=== PATIENT | male | born 1925 | race Caucasian/White ===

== ENCOUNTER 2017-02-18 17:18 | Observation (INO) | payer MEDICARE, OTHER ==
[~2017-02-18] VITALS: Ht 167.6 cm; Wt 71.2 kg
[2017-02-18] VITALS (8 sets, daily range): BP systolic 113–142; BP diastolic 63–92; PULSE 57–137; RESP 16–18; O2SAT 94–98
[~2017-02-18 17:18] MED LIST: AMIN1TAB PO; ASCO500T6 PO; ASP81TEC; CLOP75TA14 PO; DUTA0.5C PO; ERGO400C PO; FISH; ISOS30TA PO; METO25TA6 PO; METO50TA3 PO; TAM4; TRIPLE FLEX; VISION ESSENTIALS; ZES5 PO; [UNRECOGNIZED DRUG - REMARK]
--- NOTE | 2017-02-18 17:31 | ED.REPORT ---
HPI-General Illness Date of Service Feb 18, 2017 ED Provider: Grzegorz Rashid MD The patient is a 89 year old male w/ a hx of COPD, CAD, hyperlipidemia, and paroxysmal A-fib w/ RVR who presents to the ED due to an episode of rapid heart heart at 1600 today. Pt took his metoprolol and warfarin this morning. He denies lightheadedness and chest pain. Pt reports SOB, but this is baseline for him. Pt was seen at [facility] for similar symptoms 7 months ago. Nursing Notes Stated Complaint: RAPID HEART RATE Chief Complaint: Dysrhythmia/Cardiac Nursing Notes Reviewed: Yes Allergies: Coded Allergies: Penicillins (Verified Allergy, Severe, 02/18/17) meperidine (Verified Allergy, Severe, 02/18/17) Scheduled Amino Acids/Mv,Fe,Other Min-Expunged Drug, Do (Ocuvite Extra-Expunged Drug, Do Not Renew!) 1 Tab Tablet 2 TAB PO BID Ascorbic Acid-Expunged Drug, Do Not Renew! (Vitamin C-Expunged Drug, Do Not Renew!) 500 Mg Tab.chew 500 MG PO AM Dutasteride-Expunged Drug, Do Not Renew! (Dutasteride-Expunged Drug, Do Not Renew!) 0.5 Mg Capsule 0.5 MG PO HS Ergocalciferol-Expunged Drug, Do Not Renew! (Vitamin D-Expunged Drug, Do Not Renew!) 400 Unit Capsule 1,000 MG PO HS Metoprolol Tartrate (Metoprolol Tartrate) 50 Mg Tablet 50 MG PO BID Warfarin Sodium (Warfarin Sodium) 5 Mg Tablet 5 MG PO HS Miscellaneous Medications Aspirin-Expunged Drug, Do Not Renew! (Aspirin EC-Expunged Drug, Do Not Renew!) 81 Mg Tablet General Time Seen by MD: 17:30 Chief Complaint Other (rapid heart rate) Hx Obtained From: Patient Arrived By: Walk-in Sudden in Onset?: Yes Onset Occurred: 1 - 4 hours ago Symptom Duration: Since onset Severity: Current: No pain currently Recent Healthcare: No recent doctor visit, No recent hospitalization Similar Sx Previous: Yes Past Medical History Past Medical History COPD CAD Hyperlipidemia Paroxysmal A-fib w/ RvR Reports: COPD, Coronary artery disease, Hyperlipidemia Past Surgical History Jaw R arm Appendectomy Reports: Appendectomy Smoking History Unknown if Ever Smoker Social History Other Social History: Good social support, Ambulatory Status Independent Review of Systems Full Review of Systems Respiratory: Denies: Shortness of breath Cardiovascular: Denies: Chest pain Neurologic: Reports: Lightheaded Complete sys rev & neg: except as marked. Physical Exam Vital Signs Vital Signs Date Time Temp Pulse Resp B/P Pulse Ox O2 Delivery O2 Flow Rate FiO2 02/18/17 19:59 36.5 57 16 115/63 97 Room Air 02/18/17 18:53 37.1 107 18 123/84 95 Room Air 02/18/17 18:41 115 17 125/92 95 Room Air 02/18/17 18:31 111 17 113/79 95 Room Air 02/18/17 18:10 113 17 121/82 94 Room Air 02/18/17 17:20 36.7 137 18 142/78 98 Room Air Initial VS: Reviewed General/Constitutional: Awake, Alert, Cooperative, Not toxic appearing Head / Eyes: Atraumatic, Normocephalic Neck: Atraumatic, No carotid bruit Respiratory / Chest: Atraumatic, Breath sounds NL, Breath sounds = bilat, No respiratory distress Cardiovascular: No gallop, No murmurs, No rubs Heart Rate / Rhythm: Positive: Irreg irregular rhythm Upper Extremities Upper Extremity / MS: Atraumatic, Inspection NL, Full range of motion, No deformity Lower Extremity / Pelvis / MS: Atraumatic, Inspection NL, Full range of motion , No deformity Skin: Atraumatic, Color NL, No rash Neurologic: Oriented X3, Speech NL, No motor deficits Interpretation & Diagnostics Lab Results Interpretation Result Diagram: 02/18/17 1750 02/18/17 1750 Test 02/18/17 17:50 White Blood Count 9.7th/mm3 (3.8-10.1) Red Blood Count 4.86mil/mm3 (4.40-5.80) Hemoglobin 14.5g/dL (13.8-17.2) Hematocrit 43.2% (41.0-50.0) Mean Corpuscular Volume 88.9fL (81-100) Mean Corpuscular Hemoglobin 29.8pg (27.0-35.0) Mean Corpuscular Hemoglobin Concent 33.6% (32.0-37.0) Red Cell Distribution Width 14.1% (12.3-15.4) Platelet Count 185bil/L (150-400) Neutrophils (%) (Auto) 68.7% (40-74) Lymphocytes (%) (Auto) 13.4% (14-46) Monocytes (%) (Auto) 9.5% (4-12) Eosinophils (%) (Auto) 8.0% (0-5) Basophils (%) (Auto) 0.3% (0-3) Prothrombin Time 20.9sec (8.1-12.5) Prothromb Time International Ratio 1.93ratio Sodium Level 137mEq/L (134-144) Potassium Level 4.0mEq/L (3.5-5.2) Chloride Level 101mEq/L (97-108) Carbon Dioxide Level 23mmol/L (18-29) Blood Urea Nitrogen 16mg/dL (8-27) Creatinine 0.67mg/dL (0.76-1.27) Estimat Glomerular Filtration Rate 119mL/min (>59) Glucose Level 112mg/dL (60-99) Calcium Level 9.3mg/dL (8.5-10.1) Magnesium Level 2.0mg/dL (1.6-2.6) Total Bilirubin 0.4mg/dL (0.0-1.2) Aspartate Amino Transf (AST/SGOT) 29U/L (0-50) Alanine Aminotransferase (ALT/SGPT) 19U/L (0-44) Alkaline Phosphatase 82U/L (25-160) Troponin T < 0.010ug/L (0.0-0.011) Pro-B-Type Natriuretic Peptide 184.2pg/mL (0-486) Total Protein 7.4g/dL (6.4-8.4) Albumin 4.1g/dL (3.4-5.0) Hold Suero Top Tube Received (Received) ECG Interpretation ECG Interpretation: Atrial fibrillation w/ RVR (rate 132) no acute changes when compared with 07/11/16 Time: 17:35 Interpreted by: ED physician Time: 20:10 Interpreted by: ED physician Rhythm / Conduction: Tachycardia (rate 110) X-Ray Chest Interpretation Chest Xray Interpretation: IMPRESSION: No acute pulmonary process. Dictated by: Ruby Hou M.D. on 02/18/2017 at 17:50 Approved by: Ruby oHu M.D. on 02/18/2017 at 17:50 View: Portable Interpretation / Wet Read by: Interpret - Radiologist Re-Eval/Medical Decision Med Decision/Clinical Course 89-year-old male with paroxysmal atrial fibrillation, anticoagulated on warfarin and taking metoprolol for rate control. The patient insists that he has not missed metoprolol dose. he arrived in atrial fibrillation with rapid ventricular response with no chest pain shortness of breath diaphoresis or nausea. No metoprolol 50 mg IV followed by 50 mg by mouth with what initially seen by good rate control however subsequently was tachycardic with alternating episodes of significant bradycardia down in the 40s. Tachycardia. Generally be atrially driven. At present he has adequate rate control however given his frequent episodes of Procardia I believe it is appropriate to observe him in the hospital for consideration of pacemaker implant and additional rate control medication. His INR is therapeutic. Time of Eval: 17:52 Re-Evaluation/Progress Note: Plan for metropolol. Time of Eval: 19:58 Patient Status: Moderate relief Re-Evaluation/Progress Note: Pt was able to successfully ambulate to the bathroom. Plan for repeat EKG. Pt is still coming out of Atrial Fibrillation. Rate is in the 50's and he proves comfortable. Time of Eval: 20:14 Re-Evaluation/Progress Note: Repeat EKG shows sinus tachycardia. Pt reports that he feels well. Plan to talk to cardiology and discuss admission. Consultation #1: Referral / Consult Name: Temitope Mensah MD Consulted With: Cardiology Call Returned at: 20:23 Clinical Trial Assistant: Agrees with eval, Agrees with plan Note: Case discussed. Agree with plan to admit. Consultation #2: Referral / Consult Name: Travis Vickers MD Consulted With: Hospitalist Call Returned at: 20:28 Clinical Trial Assistant: Agrees with eval, Agrees with plan, Accepts admit Note: Case discussed. Mr. Nuñez will be an inpatient. Counseled Regarding: Diagnosis, Lab results, Need for admission Discharge & Departure Primary Impression: Atrial fibrillation with rapid ventricular response Disposition: ADMITTED TO HOSPITAL Discharge Condition All VS Reviewed: Yes Condition: Stable Referrals: NOPCP (PCP) [facility] Scribe Attestation Portion of this note were transcribed by Bhavya Lange. I, Dr. Rashid, personally performed the history, physical exam, and medical decision-making: I reviewed and confirmed the accuracy for the information in the transcribed note. Signed by: geraldine Cope, 02/18/17 [id number] copies to: [facility] Grzegorz Rashid MD Feb 18, 2017 17:31 Bhavya Lange Feb 18, 2017 17:55
--- NOTE | 2017-02-18 17:52 | DRSVH ---
PROCEDURE: X-RAY CHEST ONE VIEW, PORTABLE ([id number]) INDICATIONS: dysrythmia TECHNIQUE: One view of the chest was acquired. COMPARISON: [facility], CR, XR CHEST 1VW (PORTABLE), 07/11/2016, 15:02. FINDINGS: Surgical changes and devices: Clips are present at the level of the epigastrium. Lungs and pleura: No pleural effusions or pneumothorax. Calcified pleural plaques and interstitial s carring are present. Mediastinum: Mediastinal contours appear normal. Heart size is normal. Bones and chest wall: No suspicious bony lesions. Overlying soft tissues appear unremarkable. IMPRESSION: No acute pulmonary process. Dictated by: Ruby Hou M.D. on 02/18/2017 at 17:50 Approved by: Ruby Hou M.D. on 02/18/2017 at 17:50
[2017-02-18 18:10] LABS: BASOPHILS % (AUTO) 0.3 % (0-3); MONOCYTES % (AUTO) 9.5 % (4-12); Mean Corpuscular Hemoglobin 29.8 pg (27.0-35.0); Mean Corpuscular Volume 88.9 fL (81-100); NEUTROPHILS % (AUTO) 68.7 % (40-74); Platelet Count 185 bil/L (150-400)
[2017-02-18] MEDS: MeTOProlol 1 mg/mL 5 mL Inj IVPUSH SCH ×3 (18:10→18:42)
[2017-02-18 18:20] LABS: INR 1.93 ratio
[2017-02-18 18:31] LABS: TROPONIN T < 0.010 ug/L (0.0-0.011)
[2017-02-18] MEDS ORDERED: Ondansetron 2 mg/mL 2 mL Inj IVPUSH PRN (21:05)
[2017-02-18] MEDS ORDERED: Atropine 1 mg/10 mL (Code) Syringe IVPUSH PRN (21:05)
[2017-02-18] MEDS ORDERED: Alum-Mag Hydrox-Simeth 30 mL Suspension PO PRN (21:05)
[2017-02-18] MEDS ORDERED: Senna-Docusate 8.6-50 mg Tablet PO PRN (21:05)
[2017-02-18] MEDS ORDERED: Polyethylene Glycol (PEG) 17 Gm Powder PO PRN (21:05)
--- NOTE | 2017-02-18 21:23 | PCM.HPMED ---
Subjective Date of Service Feb 18, 2017 Primary Provider: Admitting Physician: Travis Vickers MD Primary Care Physician: Ashish Attending Physician: Travis Vickers MD Chief Complaint: elevated heart rate History of Present Illness: A 89-year-old male with history of atrial fibrillation and prostate cancer on surveillance who presents to the ED for elevated heart rate in the 130s. Patient reports he was taking his blood pressure today when he noticed that his HR was in the 130s. He states that whenever his HR is above 110, then he is suppose to go in for evaluation. He denies any associated symptoms other than some mild bloating. He reports he has chronic SOB, which he thinks may be due to asbestosis, but his breathing has been baseline. He has not been sick recently and reports normal PO intake. He has been compliant with his Metoprolol and Warfarin, with his last INR at 1.94. He does have chronic urinary urge incontinence, but no worse than usual. In the ER, he was afebrile and normotensive, but his pulse was noted to be between 110-130s. He had a fairly unremarkable CBC and CMP and his INR was 1.93. He had an EKG that showed Atrial fib with RVR, but no acute changes. Cardiology was consulted and recommended admission for further evaluation. Review of Systems: Comprehensive review of systems was conducted with the patient and found to be negative except as noted above in HPI. Allergies Coded Allergies: Penicillins (Verified Allergy, Severe, 02/18/17) meperidine (Verified Allergy, Severe, 02/18/17) Home Medications From Next gen: 11/06/2013 aspirin 81 mg tablet,delayed release take 1 tablet by oral route every day 09/29/2016 Avodart 0.5 mg capsule take 1 capsule (0.5MG) by ORAL route every day 08/23/2016 Avodart 0.5 mg capsule take 1 capsule (0.5MG) by ORAL route every day 09/15/2013 Fish Oil 360 mg-1,200 mg capsule 1 capsule by oral route twice daily 04/23/2009 GLUCOSAMINE SULFATE DIPOT CHLR 1 by mouth every day metoprolol succinate ER 100 mg tablet,extended release 24 hr take 1 tablet by oral route every day 03/05/2014 niacin ER 1,000 mg tablet,extended release take 1 tablet (1000MG) by oral route twice daily 03/05/2014 OCUVITE 1 tablet by oral route daily 03/26/2009 Vitamin B-12 1,000 mcg/mL Injection inject 0.1 milliliter (100MCG) by INTRAMUSCULAR route every month 09/15/2013 Vitamin C 1,000 mg tablet take 1 tablet by oral route daily Vitamin D3 1,000 unit capsule 1 tablet by oral route twice daily warfarin 5 mg tablet take 1 tablet by oral route every day and 1.5 on and PMH Atrial fibrillation with RVR Macular degeneration History of major trauma: Steel beam falling on him when he was younger This caused broken Mandible and required 3 major abdominal surgeries. Hyperlipidemia Coronary artery disease Pernicious anemia on B12 injection Surgical History Open abdominal surgery for major trauma Gastrectomy Appendectomy Right arm ORIF Family History Extensive family history of heart disease Social History Hx Alcohol Use: No Hx Substance Use: No Hx Tobacco Use: No Smoking Status: Unknown if Ever Smoker Living Arrangement: with Family Exam Vital Signs Vital Sign - Last Date Time Temp Pulse Resp B/P Pulse Ox O2 Delivery O2 Flow Rate FiO2 02/18/17 19:59 36.5 57 16 115/63 97 Room Air Exam General: Well-developed elderly gentleman who appears in no acute distress HEENT: Normocephalic, atraumatic. External ears without defect. PERRLA. Anicteric sclerae, moist conjunctivae. Oropharynx free of erythema and cobble stoning with moist mucosa. Neck: Supple with full range of motion. No jugular venous distension. No bruits. Cardiovascular: Regular rate and rhythm with soft systolic murmur Pulmonary: Some mild scattered rales bilaterally. No wheezing or rhonchi , Normal respiratory effort with no use of accessory muscles. Abdomen: Bowel tones present. Soft, nontender, nondistended. No hepatosplenomegaly or masses appreciated. 2 large abdominal scars Extremities: No clubbing, cyanosis, edema, noted Skin: Normal temperature, turgor, and texture; no rash, ulcers, or subcutaneous nodules appreciated. Neurological: Cranial nerves grossly intact. Normal muscle strength, tone, and bulk. Reflexes, coordination, and sensory function within normal limits. Psychiatric: Normal mood and affect. Alert and oriented to person, place, and time. Pleasant Lab and Diagnostics Result Diagram: 02/18/17174902/18/171749 Assessment & Plan 89-year-old male with history of atrial fibrillation and prostate cancer on surveillance who presents to the ED for elevated heart rate in the 130s. Admitted for A. fib with RVR Atrial fibrillation with RVR, paroxysmal, POA Patient currently asymptomatic and HR has decreased to the 110s with IV Metoprolol. Cardiology, Dr. Mensah, consulted Will place on telemetry for CV monitoring HH diet ordered Will continue warfarin per pharm dosing. Therapeutic on admission Echocardiogram in the AM, Will continue to trend Troponins Will continue patient's home Metoprolol tartrate for now Will continue using IV Metoprolol if he responds well, otherwise will trial Diltiazem drip. CAD, POA Stable, No anginal symptoms on admission. Continue ASA 81, Metoprolol Further management as above Prostate cancer, POA Currently on continued surveillance Continue Avodart Hyperlipidemia, POA Currently only taking fish oil Tylenol as needed for fever Zofran as needed for nausea Bowel Regimen as needed for constipation CODE STATUS: Full resuscitation Patient is admitted under inpatient status with expected length of stay greater than 2 midnights due to severity of presenting symptoms, risk of adverse event, and complexity of treatment plan. Pain Evaluation: Adequate Pain Control VTE Prophylaxis: Theraputic Anticoag with Warfarin, Other Resuscitation Status: CPR: Attempt Resuscitation Attending Statement The patient was seen and examined together with Dr. Nicolas on 02/18 and I agree with the history, exam and plan as outlined in the note above. Dickson Nicolas DO Feb 18, 2017 21:23 Trvais Vickers MD Feb 18, 2017 22:53
[2017-02-18] MEDS ORDERED: WARF5TAB7 PO (21:32)
[2017-02-18] MEDS ORDERED: METO50TA3 PO (21:32)
[2017-02-18 22:14] LABS: APPEARANCE,URINE CLEAR (CLEAR,HAZY); COLOR,URINE STRAW (YELLOW); OCCULT BLOOD,URINE TRACE (NEGATIVE); PH,URINE 5.5 (5.0-8.0); UROBILINOGEN,URINE NORMAL (NORMAL)
--- NOTE | 2017-02-18 23:30 | NUR ---
Admit note: Pt admitted from ER, able to ambulate to bed with stand by assist. Denies lightheadedness, denies chest pain/ fluttering feeling in chest. Tele a fib, rate 110s-120s with activity upon arrival, after resting, heart rate 90s-low 100s. Alert and oriented x3. Oriented to room and call light, instructed to call with needs.
[2017-02-19] MEDS: Sodium Chloride LOK Flush 10 mL Syringe IVFLUSH SCH ×2 (00:39→08:27)
[2017-02-19 00:44] VITALS: BP 90/57; PULSE 67; RESP 18; O2SAT 94
[2017-02-19 04:56] VITALS: BP 125/69; PULSE 67; RESP 18; O2SAT 94
--- NOTE | 2017-02-19 06:25 | NUR ---
Med Rec: Unknown if med rec is complete from ER, pt states talking to "pharmacy" about meds in the ED. Uses [facility] in [place]. Called to have her bring in home medication this morning so meds can be verified.
[2017-02-19 08:20] VITALS: BP 122/73; PULSE 62
[2017-02-19] MEDS ORDERED: Ascorbic Acid 500 mg Tablet PO SCH (08:30)
[2017-02-19 08:53] LABS: INR 1.91 ratio
[2017-02-19 10:14] VITALS: BP 127/74; PULSE 63
[2017-02-19 10:15] VITALS: BP_SYST 115; BP_SYST 125; BP_DIAS 65; BP_DIAS 73; PULSE 71; PULSE 73
[2017-02-19 10:21] VITALS: PULSE 61
--- NOTE | 2017-02-19 11:56 | NUR ---
Case Management: TOMAS given and explained to pt. [place] PETTITRN
--- NOTE | 2017-02-19 12:11 | PCM.DC.MED ---
Discharge Summary Date of Service Feb 19, 2017 Dates of Hospitalization Date of Hospital Admission Feb 18, 2017 at 21:11 Date of Discharge: Feb 19, 2017 Providers: Admitting Physician: Travis Vickers MD Primary Care Physician: Ashish Attending Physician: Cal Mendoza DO Diagnosis at Time of Discharge Diagnosis at Time of Discharge Atrial Fibrillation with RVR, resolved. Consultations Cardiology, Dr. Frank Brief History As per admission HPI by DR Nicolas, "A 89-year-old male with history of atrial fibrillation and prostate cancer on surveillance who presents to the ED for elevated heart rate in the 130s. Patient reports he was taking his blood pressure today when he noticed that his HR was in the 130s. He states that whenever his HR is above 110, then he is suppose to go in for evaluation. He denies any associated symptoms other than some mild bloating. He reports he has chronic SOB, which he thinks may be due to asbestosis, but his breathing has been baseline. He has not been sick recently and reports normal PO intake. He has been compliant with his Metoprolol and Warfarin, with his last INR at 1.94. He does have chronic urinary urge incontinence, but no worse than usual. In the ER, he was afebrile and normotensive, but his pulse was noted to be between 110-130s. He had a fairly unremarkable CBC and CMP and his INR was 1.93. He had an EKG that showed Atrial fib with RVR, but no acute changes. Cardiology was consulted and recommended admission for further evaluation. " Hospital Course Atrial fibrillation with RVR, paroxysmal, POA Patient admitted asymptomatic with HR decreased to the 110s with IV Metoprolol. Cardiology, Dr. Mensah, consulted, pt subsequently evaluated by Dr. Frank in AM who felt condition resolved spontaneously and warrented no acute changed in management. PT had been monitorewd on telemetry without further abnormal findings. Echocardiogram ordered initially but cancelled by sole seamer following evaluation. Patient's home Metoprolol tartrate for now No medication changes recommended on discharge. Condition remained in remission Plan for FU with cardiology out patient for continued evaluation and care. CAD, POA Stable, No anginal symptoms on admission. Continue ASA 81, Metoprolol Further management as above Prostate cancer, POA Currently on continued surveillance Continue Avodart Hyperlipidemia, POA Currently only taking fish oil Exam Vital Signs (Last) Date Time Temp Pulse Resp B/P Pulse Ox O2 Delivery O2 Flow Rate FiO2 02/19/17 10:21 61 02/19/17 10:15 125/73 02/19/17 04:56 36.3 18 94 Room Air Test 02/18/17 17:50 02/18/17 21:48 02/19/17 08:20 White Blood Count 9.7th/mm3 (3.8-10.1) Red Blood Count 4.86mil/mm3 (4.40-5.80) Hemoglobin 14.5g/dL (13.8-17.2) Hematocrit 43.2% (41.0-50.0) Mean Corpuscular Volume 88.9fL (81-100) Mean Corpuscular Hemoglobin 29.8pg (27.0-35.0) Mean Corpuscular Hemoglobin Concent 33.6% (32.0-37.0) Red Cell Distribution Width 14.1% (12.3-15.4) Platelet Count 185bil/L (150-400) Neutrophils (%) (Auto) 68.7% (40-74) Lymphocytes (%) (Auto) 13.4% (14-46) Monocytes (%) (Auto) 9.5% (4-12) Eosinophils (%) (Auto) 8.0% (0-5) Basophils (%) (Auto) 0.3% (0-3) Sodium Level 137mEq/L (134-144) Potassium Level 4.0mEq/L (3.5-5.2) Chloride Level 101mEq/L (97-108) Carbon Dioxide Level 23mmol/L (18-29) Blood Urea Nitrogen 16mg/dL (8-27) Creatinine 0.67mg/dL (0.76-1.27) Estimat Glomerular Filtration Rate 119mL/min (>59) Glucose Level 112mg/dL (60-99) Calcium Level 9.3mg/dL (8.5-10.1) Magnesium Level 2.0mg/dL (1.6-2.6) Total Bilirubin 0.4mg/dL (0.0-1.2) Aspartate Amino Transf (AST/SGOT) 29U/L (0-50) Alanine Aminotransferase (ALT/SGPT) 19U/L (0-44) Alkaline Phosphatase 82U/L (25-160) Pro-B-Type Natriuretic Peptide 184.2pg/mL (0-486) Total Protein 7.4g/dL (6.4-8.4) Albumin 4.1g/dL (3.4-5.0) Thyroid Stimulating Hormone (TSH) 1.590uIU/mL (0.450-4.500) Hold Suero Top Tube Received (Received) Urine Color Straw (YELLOW) Urine Appearance Clear (CLEAR,HAZY) Urine pH 5.5 (5.0-8.0) Urine Specific [place] 1.007 (1.003-1.035) Urine Protein Negativemg/dL (NEG,TRACE) Urine Glucose (UA) Negativemg/dL (NEGATIVE) Urine Ketones Negativemg/dL (NEGATIVE) Urine Occult Blood Trace (NEGATIVE) Urine Nitrite Negative (NEGATIVE) Urine Bilirubin Negative (NEGATIVE) Urine Urobilinogen Normalmg/dL (NORMAL) Urine Leukocyte Esterase Negative (NEGATIVE) Urine RBC 0-2/hpf (0-2) Urine WBC 0-5/hpf (0-5) Urine Epithelial Cells Occasional/hpf (NONE-MOD) Urine Crystals None seen (NONE SEEN) Urine Bacteria Few/hpf (NONE-FEW) Urine Hyaline Casts None/lpf (NONE) Urine Granular Casts None seen (NONE SEEN) Urine Waxy Casts None seen (NONE SEEN) Urine Red Blood Cell Casts None seen (NONE SEEN) Urine White Blood Cell Casts None seen (NONE SEEN) Urine Mucus None seen (None Seen) Urine Trichomonas None seen (NONE SEEN) Urine Yeast None (NONE SEEN) Urinalysis Comment None Urine Culture Reflexed Not indicated Prothrombin Time 20.7sec (8.1-12.5) Prothromb Time International Ratio 1.91ratio Troponin T 0.010ug/L (0.0-0.011) General: Alert, Oriented X3, Cooperative, No Acute Distress Cardiovascular: Regular Rate/Rhythm, No Murmurs/Rubs/Gallops Extremities: No cyanosis/clubbing/edma bilat Neurological: Grossly Neurologically Intact Discharge Medications Discharge Medications Amino Acids/Mv,Fe,Other Min-Expunged Drug, Do (Ocuvite Extra-Expunged Drug, Do Not Renew!) 1 Tab Tablet 2 TAB PO BID (Reported) Ascorbic Acid-Expunged Drug, Do Not Renew! (Vitamin C-Expunged Drug, Do Not Renew!) 500 Mg Tab.chew 500 MG PO AM (Reported) Dutasteride-Expunged Drug, Do Not Renew! (Dutasteride-Expunged Drug, Do Not Renew!) 0.5 Mg Capsule 0.5 MG PO HS (Reported) Ergocalciferol-Expunged Drug, Do Not Renew! (Vitamin D-Expunged Drug, Do Not Renew!) 400 Unit Capsule 1,000 MG PO HS (Reported) Metoprolol Tartrate (Metoprolol Tartrate) 50 Mg Tablet 50 MG PO BID (Reported) Warfarin Sodium (Warfarin Sodium) 5 Mg Tablet 5 MG PO HS (Reported) Miscellaneous Medications Aspirin-Expunged Drug, Do Not Renew! (Aspirin EC-Expunged Drug, Do Not Renew!) 81 Mg Tablet (Reported) Followup Plan Disposition: Home Follow-up plan Continue all medications as previously prescribed Follow up with sole seamer in 1-2 weeks following discharge IN future, abdominal discomfort may be managed by promptly calling primary care phsycian/sole seamer IF you do not have chest pain, shortness of breath, sweats /chills or other symptoms which would warrant prompt emergency evaluation and contacting of 911. Please discuss indications for 911/emergency evaluation further with your sole seamer in office. Discharge Diet: Heart Healthy Discharge Activity: No restrictions Follow-up with PCP in: 1 week Time spent 40 minutes Vital Signs Vital Sign - Last Date Time Temp Pulse Resp B/P Pulse Ox O2 Delivery O2 Flow Rate FiO2 02/19/17 10:21 61 02/19/17 10:15 125/73 02/19/17 04:56 36.3 18 94 Room Air Intake and Output 02/18/17 02/18/17 02/19/17 Cumulative From/Thru 14:59 22:59 06:59 02/18/17 17:20 - 02/19/17 06:17 Intake Total 100 ml 100 ml Output Total 600 ml 600 ml Balance -500 ml -500 ml Intake Oral 100 ml 100 ml Output Urine Total 600 ml 600 ml Lab and Diagnostics Result Diagram: 02/18/17 17502/18/17 175 Cal Mendoza DO Feb 19, 2017 12:11
--- NOTE | 2017-02-19 12:13 | PCM.DIMED ---
Discharge Instructions Date of Service Feb 19, 2017 Dates of Hospitalization Feb 18, 2017 at 21:11 Discharge Diagnosis Discharge Diagnosis Atrial Fibrillation with RVR, resolved. Diet Discharge Diet: Heart Healthy Activity Discharge Activity: No restrictions Patient Instructions Follow-up plan Continue all medications as previously prescribed Follow up with pocket creaser in 1-2 weeks following discharge IN future, abdominal discomfort may be managed by promptly calling primary care phsycian/pocket creaser IF you do not have chest pain, shortness of breath, sweats /chills or other symptoms which would warrant prompt emergency evaluation and contacting of 911. Please discuss indications for 911/emergency evaluation further with your pocket creaser in office. Follow-up with PCP in: 1 week Cal Mendoza DO Feb 19, 2017 12:13
--- NOTE | 2017-02-19 12:23 | PCM.CHPCAR ---
Consult Subjective Date of service Feb 19, 2017 Date of admit Feb 18, 2017 at 21:11 Provider Requesting Consult Primary Care Physician Primary Care Physician: Ashish Chief Complaint Fast heart rate History of Present Illness 89 year-old man history of paroxysmal atrial fibrillation, coronary artery disease status post DANITA 3 to RCA in 2007, hyperlipidemia, and moderate aortic stenosis admitted with faster heart rate. Patient states that he has been mostly in his usual state of health but had heart rates in the [id number] range yesterday. Therefore, he decided to get himself evaluated. Patient states that he felt reasonable except for having abdominal discomfort that he also has chronically due to his prior history of duodenal ulcer surgery. Since being in the hospital, he feels back to his baseline and is eager to go home. Denies chest pain, heart racing sensations, palpitations, dyspnea, lightheadedness, or syncope. PMH Past Medical History # Paroxysmal atrial fibrillation # Coronary artery disease status post DANITA 3 to RCA in 2007 # Hyperlipidemia # Moderate aortic stenosis Bedside Blood Glucose: 112 Scheduled Amino Acids/Mv,Fe,Other Min-Expunged Drug, Do (Ocuvite Extra-Expunged Drug, Do Not Renew!) 1 Tab Tablet 2 TAB PO BID (Reported) Ascorbic Acid-Expunged Drug, Do Not Renew! (Vitamin C-Expunged Drug, Do Not Renew!) 500 Mg Tab.chew 500 MG PO AM (Reported) Dutasteride-Expunged Drug, Do Not Renew! (Dutasteride-Expunged Drug, Do Not Renew!) 0.5 Mg Capsule 0.5 MG PO HS (Reported) Ergocalciferol-Expunged Drug, Do Not Renew! (Vitamin D-Expunged Drug, Do Not Renew!) 400 Unit Capsule 1,000 MG PO HS (Reported) Metoprolol Tartrate (Metoprolol Tartrate) 50 Mg Tablet 50 MG PO BID (Reported) Warfarin Sodium (Warfarin Sodium) 5 Mg Tablet 5 MG PO HS (Reported) Miscellaneous Medications Aspirin-Expunged Drug, Do Not Renew! (Aspirin EC-Expunged Drug, Do Not Renew!) 81 Mg Tablet (Reported) Discontinued Medications ([cholest off]) BID (Reported) ([triple flex]) BID (Reported) ([vision essentials]) BID (Reported) Clopidogrel-Expunged Drug, Do Not Renew! (Plavix-Expunged Drug, Do Not Renew!) 75 Mg Tablet 75 MG PO DAILY (Reported) Fish Oil-Expunged Drug, Do Not Renew! (Fish Oil-Expunged Drug, Do Not Renew!) Cap (Reported) Isosorbide Story-Expunged Drug, Do Not Renew! (Imdur-Expunged Drug, Do Not Renew! ) 30 Mg Tab.sr.24h 30 MG PO HS (Reported) Lisinopril-Expunged Drug, Do Not Renew! (Lisinopril-Expunged Drug, Do Not Renew! ) 5 Mg Tablet 5 MG PO pm (Reported) Metoprolol Tartrate (Metoprolol Tartrate) 25 Mg Tablet 12.5 MG PO BID Metoprolol Tartrate (Metoprolol Tartrate) 50 Mg Tablet 50 MG PO BID Tamsulosin-Expunged Drug, Do Not Renew! (Flomax-Expunged Drug, Do Not Renew!) 0.4 Mg Capsule (Reported) Current Inpatient Medications Current Medications Metoprolol Tartrate 5 mg Q5MIN IVPUSH Last administered on 02/18/17t 18:42; Admin Dose 5 MG; Start 02/18/17 at 17:55 Sodium Chloride 10 ml MISAEL IVFLUSH Last administered on 02/19/17t 08:27; Admin Dose 10 ML; Start 02/19/17 at 00:30 Al Hydrox/Mg Hydrox/Simethicone 30 ml Q6 PRN PO; Start 02/18/17 at 21:05 Ondansetron HCl 4-8 mg prn nausea Q4 PRN IVPUSH; Start 02/18/17 at 21:05 Senna 1 tablet BID PRN PO; Start 02/18/17 at 21:05 Polyethylene Glycol 17 gm DAILY PRN PO; Start 02/18/17 at 21:05 Acetaminophen 325 mg Q6 PRN PO; Start 02/18/17 at 21:05 Nitroglycerin 0.4 mg Q5MIN PRN SL; Start 02/18/17 at 21:05 Morphine Sulfate 1-5 mg prn pain not relie... Q5M PRN IVPUSH; Start 02/18/17 at 21:05 Atropine Sulfate 0.5 mg Q5MIN PRN IVPUSH; Start 02/18/17 at 21:05 Pharmacy Consult 1 ea DAILY@17 XX Last administered on 02/18/17 22:17; Admin Dose 1 EA; Start 02/18/17 at 21:31 Metoprolol Tartrate 50 mg BID PO Last administered on 02/19/17 08:26; Admin Dose 50 MG; Start 02/19/17 at 08:30 Ascorbic Acid 500 mg DAILY PO Last administered on 02/19/17 08:26; Admin Dose 500 MG; Start 02/19/17 at 08:30 Finasteride 5 mg HS PO; Start 02/19/17 at 21:00 Cholecalciferol 1,000 unit HS PO; Start 02/19/17 at 21:00 Aspirin 81 mg DAILY PO Last administered on 02/19/17 08:27; Admin Dose 81 MG; Start 02/19/17 at 08:30 Allergies: Coded Allergies: Penicillins (Verified Allergy, Severe, 02/18/17) meperidine (Verified Allergy, Severe, 02/18/17) Family History Family History 2 kids are healthy Social History Hx Alcohol Use: NoHx Substance Use: NoHx Tobacco Use: No Smoking Status: Former Smoker (quit in 1981) Living Arrangement: with Family Exam Vital Signs Vital Sign - Last Date Time Temp Pulse Resp B/P Pulse Ox O2 Delivery O2 Flow Rate FiO2 02/19/17 10:21 61 02/19/17 10:15 125/73 02/19/17 04:56 36.3 18 94 Room Air Intake and Output 02/18/17 02/18/17 02/19/17 Cumulative From/Thru 14:59 22:59 06:59 02/18/17 17:20 - 02/19/17 06:17 Intake Total 100 ml 100 ml Output Total 600 ml 600 ml Balance -500 ml -500 ml Intake Oral 100 ml 100 ml Output Urine Total 600 ml 600 ml Objective General appearance: No apparent distress, elderly, frail,, pleasant, cooperative HEET: Normocephalic atraumatic, no scleral icterus, tongue midline, mucous membranes moist Neck: supple Cardiovascular: RRR, normal S1 and normal S2, no murmurs/ rubs/gallops, PMI nondisplaced, no JVD, no peripheral edema Respiratory: Good aeration, CTAB Abdomen: Soft, nontender, nondistended, + bowel sounds Neuro: Alert, no facial droop, tongue midline, no gross motor deficit Psych: appropriate affect Skin: no rashes on face, neck, and lower extremities Lab and Diagnostics Result Diagram: 02/18/17 [id number] 12-lead ECG ECG on admission shows atrial tachycardia with heart rates in the 120s range. Laboratory: Atrial tachycardia initially that converted to sinus rhythm with frequent PACs Assessment & Plan Assessment 89 year-old man history of paroxysmal atrial fibrillation, coronary artery disease status post DANITA 3 to RCA in 2007, hyperlipidemia, and moderate aortic stenosis admitted with faster heart rate: # Atrial tachycardia: Patient had mildly elevated heart rates with atrial tachycardia. He appears asymptomatic from them. I educated the patient about his condition and recommended that he call his mails supervisor when he has a faster heart rate without symptoms. If he is having symptoms of chest pain, shortness of breath, lightheadedness, syncope, or significant fatigue, he should come to the hospital. Recommendations as below: - Continue metoprolol at current doses as he is tolerating them well - No need for further testing at this time # Paroxysmal atrial fibrillation: Well rate controlled and asymptomatic. - Continue warfarin - Continue metoprolol at current doses # Coronary artery disease: Patient has had 3 stents to his RCA in 2007. He has done well since then. He supposedly intolerant to statins and therefore is not taking them. He was also asked to have a stress test done after her last cardiology visit a year ago but I do not have any results from a review. Recommendations as below: - No need for aspirin as patient on warfarin as above - Follow-up with cardiology at the [facility] on coronary artery disease and hyperlipidemia management Thank you for the interesting consultation. Cardiology will sign off at this time. Patient should follow-up with his mails supervisor within 2 weeks. Pain Evaluation: Adequate Pain Control VTE Prophylaxis: Theraputic Anticoag with Warfarin, Other Resuscitation Status: CPR: Attempt Resuscitation Rodney Frank MD Feb 19, 2017 12:23
--- NOTE | 2017-02-19 16:13 | NUR ---
Social Work note - Discharge Nathaniel Nuñez was admitted for afib - rapid heart rate - EMR reviewed: Pt has Medicare and [employer] insurance. His PCP is not listed. ASSISTANT ELEMENTARY TEACHER attempted to meet with pt - pt was d/c home with no anticipated needs prior to ASSISTANT ELEMENTARY TEACHER evaluation. SUSANNAH Montelongo
== END 2017-02-19 12:50 | disposition home or self-care (01) ==
LOC: SED 17:18 → MPC 21:11
PROVIDERS: ADMIT Hospitalist; ATTEND Family Medicine
DX: I48.0 Paroxysmal atrial fibrillation (principal); I47.2 Ventricular tachycardia; C61 Malignant neoplasm of prostate; I25.10 Atherosclerotic heart disease of native coronary artery without angina pectoris; E78.5 Hyperlipidemia, unspecified; J44.9 Chronic obstructive pulmonary disease, unspecified; N39.41 Urge incontinence; D51.0 Vitamin B12 deficiency anemia due to intrinsic factor deficiency; H35.30 Unspecified macular degeneration; Z79.82 Long term (current) use of aspirin; Z79.01 Long term (current) use of anticoagulants
CPT/HCPCS: 36415; 71010; 80053; 81000; 83735; 83880; 84443; 84484; 85025; 85610; 93005; 96374; 96376; 99285; G0378

== ENCOUNTER 2017-03-17 07:40 | Emergency (ER) | payer MEDICARE, OTHER ==
[~2017-03-17] VITALS: Ht 165.1 cm; Wt 70.5 kg
[~2017-03-17 07:40] MED LIST changes: -CLOP75TA14 PO; -FISH; -ISOS30TA PO; -METO25TA6 PO; -TAM4; -TRIPLE FLEX; -VISION ESSENTIALS; +WARF5TAB7 PO; -ZES5 PO; -[UNRECOGNIZED DRUG - REMARK]
[2017-03-17 07:44] VITALS: BP 107/60; PULSE 117; RESP 19; O2SAT 97
--- NOTE | 2017-03-17 08:03 | ED.REPORT ---
HPI-Chest Pain 40 and Over Date of Service Mar 17, 2017 ED Provider: Destinee Hadley MD The pt is a 89 y/o male w/ a hx of hyperlipidemia, CAD, COPD, and paroxysmal A- fib w/ RvR presenting to the ED complaining of chest pain. He describes it as dull, has happened 6 times in the last month, and he reports the pain usually stopping after he takes a 2nd dose of metoprolol. During this episode he reports waking up w/ a HR of 139 as well as the chest pain. The pt describes taking a 75 mg metoprolol, which is his usual, last night and a 25 mg this morning at 0300 w/o relief. The pt also reports having chronic SOB w/ exertion. Nursing Notes Stated Complaint: CHEST PAIN Chief Complaint: Chest Pain Nursing Notes Reviewed: Yes Allergies: Coded Allergies: Penicillins (Verified Allergy, Severe, 02/18/17) meperidine (Verified Allergy, Severe, 02/18/17) Scheduled Amino Acids/Mv,Fe,Other Min-Expunged Drug, Do (Ocuvite Extra-Expunged Drug, Do Not Renew!) 1 Tab Tablet 2 TAB PO BID Ascorbic Acid-Expunged Drug, Do Not Renew! (Vitamin C-Expunged Drug, Do Not Renew!) 500 Mg Tab.chew 500 MG PO AM Dutasteride-Expunged Drug, Do Not Renew! (Dutasteride-Expunged Drug, Do Not Renew!) 0.5 Mg Capsule 0.5 MG PO HS Ergocalciferol-Expunged Drug, Do Not Renew! (Vitamin D-Expunged Drug, Do Not Renew!) 400 Unit Capsule 1,000 MG PO HS Metoprolol Tartrate (Metoprolol Tartrate) 50 Mg Tablet 50 MG PO BID Warfarin Sodium (Warfarin Sodium) 5 Mg Tablet 5 MG PO HS Miscellaneous Medications Aspirin-Expunged Drug, Do Not Renew! (Aspirin EC-Expunged Drug, Do Not Renew!) 81 Mg Tablet General Time Seen by MD: 07:59 Chief Complaint Chest pain Hx Obtained From: Patient Arrived By: Ambulance Sudden in Onset?: Yes Onset Occurred: Just prior to arrival Symptom Duration: Since onset Recent Healthcare: No recent hospitalization, Recent doctor visit Similar Sx Previous: Yes Past Medical History Past Medical History COPD CAD Hyperlipidemia Paroxysmal A-fib w/ RvR Dr. Dandy Temple from [place] is the pt's energy technician Reports: COPD, Coronary artery disease, Hyperlipidemia Past Surgical History Jaw R arm Appendectomy Reports: Appendectomy Smoking History Former Smoker Social History Other Social History: Good social support, Ambulatory Status Independent Review of Systems Respiratory: Reports: Shortness of breath (chronic ) Cardiovascular: Reports: Chest pain Complete sys rev & neg: except as marked. Physical Exam Initial Vital Signs Vital Signs (First) Date Time Temp Pulse Resp B/P Pulse Ox O2 Delivery O2 Flow Rate FiO2 03/17/17 07:44 36.5 117 19 107/60 97 Room Air Initial VS: Reviewed Head / Eyes: Atraumatic, Normocephalic, PERRL ENT: Mucous membranes moist, Conjunctiva normal, No scleral icterus Extremities: Vascular intact, Neuro intact, No swelling, No tenderness Skin: Warm, Dry, No cyanosis Neurologic: Alert, Oriented, Nonfocal Psychiatric: Mood/affect normal, Behavior normal, Normal thought content General/Constitutional: Awake, Alert Respiratory / Chest: Atraumatic, Breath sounds NL, Breath sounds = bilat Cardiovascular: Heart sounds NL, No murmurs, Peripheral circulation NL HR in 80s Intermittently irregular Abdomen: Atraumatic, Soft, Non-tender Neck: Atraumatic, Supple, Full range of motion, No JVD Interpretation & Diagnostics Lab Results Interpretation Result Diagram: 03/17/17 0800 03/17/17 0800 Test 03/17/17 08:00 White Blood Count 8.3th/mm3 (3.8-10.1) Red Blood Count 4.99mil/mm3 (4.40-5.80) Hemoglobin 14.8g/dL (13.8-17.2) Hematocrit 44.5% (41.0-50.0) Mean Corpuscular Volume 89.2fL (81-100) Mean Corpuscular Hemoglobin 29.7pg (27.0-35.0) Mean Corpuscular Hemoglobin Concent 33.3% (32.0-37.0) Red Cell Distribution Width 14.3% (12.3-15.4) Platelet Count 194bil/L (150-400) Neutrophils (%) (Auto) 60.6% (40-74) Lymphocytes (%) (Auto) 21.1% (14-46) Monocytes (%) (Auto) 9.3% (4-12) Eosinophils (%) (Auto) 8.4% (0-5) Basophils (%) (Auto) 0.5% (0-3) Prothrombin Time 26.1sec (8.1-12.5) Prothromb Time International Ratio 2.40ratio Sodium Level 140mEq/L (134-144) Potassium Level 4.0mEq/L (3.5-5.2) Chloride Level 104mEq/L (97-108) Carbon Dioxide Level 23mmol/L (18-29) Blood Urea Nitrogen 12mg/dL (8-27) Creatinine 0.54mg/dL (0.76-1.27) Estimat Glomerular Filtration Rate 152mL/min (>59) Glucose Level 106mg/dL (60-99) Calcium Level 9.0mg/dL (8.5-10.1) Magnesium Level 1.8mg/dL (1.6-2.6) Total Bilirubin 0.6mg/dL (0.0-1.2) Aspartate Amino Transf (AST/SGOT) 33U/L (0-50) Alanine Aminotransferase (ALT/SGPT) 20U/L (0-44) Alkaline Phosphatase 81U/L (25-160) Troponin T 0.010ug/L (0.0-0.011) Total Protein 7.5g/dL (6.4-8.4) Albumin 4.2g/dL (3.4-5.0) ECG Interpretation ECG Interpretation: Rate 113 Slow flutter on beta max Time: 07:49 Interpreted by: ED physician X-Ray Chest Interpretation Chest Xray Interpretation: IMPRESSION: 1. No radiographic evidence of acute cardiopulmonary pathology. 2. Calcified pleural plaques consistent with previous asbestos exposure. Consider a chest CT with contrast which may be performed on a nonemergent basis for further evaluation. Dictated by: Sotero Augustine M.D. on 03/17/2017 at 8:49 Approved by: Sotero Augustine M.D. on 03/17/2017 at 8:50 View: Portable, 1 view Interpretation / Wet Read by: Interpret - Radiologist Re-Eval/Medical Decision Med Decision/Clinical Course Paroxysmal atrial fib flutter. Increasing episodes recently. Appropriately anticoagulated with INR 2.4. Metoprolol was increased rate is down in the 80s he is much more comfortable. Remains in A. fib flutter pattern. No evidence of infection failure or acute ischemia. blood pressure is stable Source of Hx: Old records Time of Eval: 11:24 Re-Evaluation/Progress Note: Rechecked pt. The pt is in A-fib w/ a rate of 80-90 and his BP standing is 96/49. Counseled Regarding: Diagnosis, Lab results, Need for follow-up, When/why to return to ED Discharge & Departure Primary Impression: Atrial fibrillation and flutter Ruled Out: Acute coronary syndrome Disposition: Home Discharge Condition All VS Reviewed: Yes Condition: Stable Your atrial fib/flutter was acting up a bit last night and you noticed the rate. There is no evidence of a heart attack or heart failure. You were given 100 mg of metoprolol this morning rather than the 75 mg you had recently been increased to. The remainder of your blood work was unremarkable today. Your Coumadin level(INR) is appropriate at 2.4 Please continue your warfarin/coumadin as directed Please INCREASE your metoprolol to 100mg at bedtime (2 pills) and 75mg (1.5 pills) in the am. With this change in medication, you will need to see your energy technician next week to make sure you are tolerating it (your blood pressure isn't too low) and that it is working for you. I wish you the best. Scribe Attestation Portions of this note were transcribed by Adarsh West. I, Dr. Hadley personally performed the history, physical exam and medical decision-making; I reviewed and confirmed the accuracy of the information in the transcribed note. copies to: Dandy Temple MD, Shawna L MD Mar 17, 2017 08:03 Adarsh West Mar 17, 2017 08:06
[2017-03-17 08:13] LABS: BASOPHILS % (AUTO) 0.5 % (0-3); EOSINOPHILS % (AUTO) 8.4 % (0-5); MONOCYTES % (AUTO) 9.3 % (4-12); Mean Corpuscular Hemoglobin 29.7 pg (27.0-35.0); Mean Corpuscular Volume 89.2 fL (81-100); NEUTROPHILS % (AUTO) 60.6 % (40-74); Platelet Count 194 bil/L (150-400)
[2017-03-17 08:18] VITALS: BP 110/60; PULSE 101; RESP 16; O2SAT 96
[2017-03-17 08:41] LABS: TROPONIN T 0.01 ug/L (0.0-0.011)
--- NOTE | 2017-03-17 08:51 | DRSVH ---
PROCEDURE: X-RAY CHEST ONE VIEW, PORTABLE ([id number]) INDICATIONS: chest pain TECHNIQUE: One view of the chest was acquired. COMPARISON: [facility], CR, XR CHEST 1VW (PORTABLE), 02/18/2017, 17:39. [facility], CR, XR CHEST 1VW (PORTABLE), 07/11/2016, 15:02. [facility], CR, XR CHEST 1VW (PO RTABLE), 06/14/2016, 2:19. [facility], CR, CHEST 1VW (PORTABLE), 01/11/2008, 22:00. FINDINGS: Surgical changes and devices: None. Lungs and pleura: No pleural effusions or pneumothorax. Bilateral calcified pleural plaques and pos sible calcified granulomas. Trace right pleural effusion. Mediastinum: Mediastinal contours appear normal. Heart size is normal. Bones and chest wall: No suspicious bony lesions. Overlying soft tissues appear unremarkable. IMPRESSION: 1. No radiographic evidence of acute cardiopulmonary pathology. 2. Calcified pleural plaques consistent with previous asbestos exposure. Consider a chest CT with con trast which may be performed on a nonemergent basis for further evaluation. Dictated by: Sotero Augustine M.D. on 03/17/2017 at 8:49 Approved by: Sotero Augustine M.D. on 03/17/2017 at 8:50
[2017-03-17 08:52] LABS: Magnesium 1.8 mg/dL (1.6-2.6)
[2017-03-17 09:11] VITALS: BP 85/50; PULSE 101; RESP 18; O2SAT 96
[2017-03-17] MEDS ORDERED: 0.9% Sodium Chloride 500 ML IV ONE (09:15)
[2017-03-17 10:06] LABS: INR 2.4 ratio
[2017-03-17 11:14] VITALS: BP 86/52; PULSE 84; RESP 20; O2SAT 96
[2017-03-17 11:39] VITALS: BP 96/71; PULSE 76; RESP 15; O2SAT 95
[2017-03-17 11:51] VITALS: BP 96/71; PULSE 76; RESP 15; O2SAT 95
== END 2017-03-17 11:52 | disposition home or self-care (01) ==
LOC: SED 07:40 → EDBD 07:40 → EDUNIT# 07:40 → SED 11:52
DX: I48.91 Unspecified atrial fibrillation (principal); I48.92 Unspecified atrial flutter; E78.5 Hyperlipidemia, unspecified; I25.10 Atherosclerotic heart disease of native coronary artery without angina pectoris; J44.9 Chronic obstructive pulmonary disease, unspecified; Z87.891 Personal history of nicotine dependence; Z88.0 Allergy status to penicillin; Z88.8 Allergy status to other drugs, medicaments and biological substances; Z79.01 Long term (current) use of anticoagulants
CPT/HCPCS: 36415; 71010; 80053; 83735; 84484; 85025; 85610; 93005; 96360; 99285; J7040

== ENCOUNTER 2017-03-28 20:03 | Emergency (ER) | payer MEDICARE, OTHER ==
[~2017-03-28] VITALS: Ht 167.6 cm; Wt 70.5 kg
[2017-03-28 20:04] VITALS: BP 129/84; PULSE 124; RESP 18; O2SAT 96
[2017-03-28 20:39] LABS: BASOPHILS % (AUTO) 0.5 % (0-3); EOSINOPHILS % (AUTO) 10.5 % (0-5); MONOCYTES % (AUTO) 9.4 % (4-12); Mean Corpuscular Hemoglobin 29.8 pg (27.0-35.0); Mean Corpuscular Volume 88.8 fL (81-100); NEUTROPHILS % (AUTO) 59.1 % (40-74); Platelet Count 174 bil/L (150-400)
--- NOTE | 2017-03-28 20:54 | DRSVH ---
PROCEDURE: X-RAY CHEST ONE VIEW, PORTABLE ([id number]) INDICATIONS: Chest pain TECHNIQUE: One view of the chest was acquired. COMPARISON: [facility], CR, XR CHEST 1VW (PORTABLE), 03/17/2017, 7:49. FINDINGS: Surgical changes and devices: Surgical clips at the GE junction.. Lungs and pleura: No pleural effusions or pneumothorax. Calcified pleural plaques consistent with as bestos related disease are stable compared to prior examination. Lungs are clear. Mediastinum: Mediastinal contours appear normal. Heart size is normal. Bones and chest wall: No suspicious bony lesions. Overlying soft tissues appear unremarkable. IMPRESSION: No acute cardiopulmonary disease process. Dictated by: Jesenia Watt MD, PhD on 03/28/2017 at 20:51 Approved by: Jesenia Watt MD, PhD on 03/28/2017 at 20:52
[2017-03-28 20:59] LABS: TROPONIN T < 0.010 ug/L (0.0-0.011)
[2017-03-28 21:04] LABS: Magnesium 1.9 mg/dL (1.6-2.6)
[2017-03-28 21:08] LABS: INR 3.14 ratio
--- NOTE | 2017-03-28 21:17 | ED.REPORT ---
HPI-Chest Pain 40 and Over Date of Service Mar 28, 2017 ED Provider: Peyman Méndez MD Pt is an 89 year old male with a hx of afib, COPD, CAD and prostate cancer presenting to the ED complaining of palpitations and sternal chest pain onset tonight. Pt reports feeling okay currently. Pt takes Metoprolol daily but his reports that he had an appointment with his wire frame dipper a few days ago and they discussed switching him to a different medication other than Metoprolol. Denies nausea, vomiting, diarrhea, SOB, wheezing, fever, or chills. Nursing Notes Stated Complaint: AFIB Chief Complaint: Dysrhythmia/Cardiac Nursing Notes Reviewed: Yes Allergies: Coded Allergies: Penicillins (Verified Allergy, Severe, 03/28/17) meperidine (Verified Allergy, Severe, 03/28/17) Scheduled Amino Acids/Mv,Fe,Other Min-Expunged Drug, Do (Ocuvite Extra-Expunged Drug, Do Not Renew!) 1 Tab Tablet 2 TAB PO BID Ascorbic Acid-Expunged Drug, Do Not Renew! (Vitamin C-Expunged Drug, Do Not Renew!) 500 Mg Tab.chew 500 MG PO AM Dutasteride-Expunged Drug, Do Not Renew! (Dutasteride-Expunged Drug, Do Not Renew!) 0.5 Mg Capsule 0.5 MG PO HS Ergocalciferol-Expunged Drug, Do Not Renew! (Vitamin D-Expunged Drug, Do Not Renew!) 400 Unit Capsule 1,000 MG PO HS Metoprolol Tartrate (Metoprolol Tartrate) 50 Mg Tablet 50 MG PO BID Warfarin Sodium (Warfarin Sodium) 5 Mg Tablet 5 MG PO HS Miscellaneous Medications Aspirin-Expunged Drug, Do Not Renew! (Aspirin EC-Expunged Drug, Do Not Renew!) 81 Mg Tablet General Time Seen by MD: 21:14 Chief Complaint Chest pain, Other (Palpitations) Hx Obtained From: Patient Arrived By: Walk-in Sudden in Onset?: Yes Onset Occurred: Just prior to arrival Symptom Duration: Since onset Quality: Painful Severity: Current: Mild Severity: Maximum: Moderate Recent Healthcare: No recent hospitalization, Recent doctor visit Similar Sx Previous: Yes Past Medical History Past Medical History COPD CAD Hyperlipidemia Paroxysmal A-fib w/ RvR Dr. Dandy Temple from [place] is the pt's wire frame dipper Reports: COPD, Coronary artery disease, Hyperlipidemia Past Surgical History Jaw R arm Appendectomy Reports: Appendectomy Smoking History Former Smoker Social History Other Social History: Good social support, Ambulatory Status Independent Review of Systems Constitutional: Denies: Chills, Fever Respiratory: Denies: Shortness of breath, Wheezing Cardiovascular: Reports: Chest pain, Palpitations GI: Denies: Diarrhea, Nausea, Vomiting Complete sys rev & neg: except as marked. Physical Exam Initial Vital Signs Vital Signs (First) Date Time Temp Pulse Resp B/P Pulse Ox O2 Delivery O2 Flow Rate FiO2 03/28/17 20:04 37.0 124 18 129/84 96 Room Air Initial VS: Reviewed, Vital signs normal Head / Eyes: Atraumatic, Normocephalic, PERRL ENT: Mucous membranes moist, Conjunctiva normal, No scleral icterus Extremities: Vascular intact, Neuro intact, No swelling, No tenderness Skin: Warm, Dry, No cyanosis Neurologic: Alert, Oriented, Nonfocal Psychiatric: Mood/affect normal, Behavior normal, Normal thought content General/Constitutional: Awake, Alert, No acute distress, Well appearing Respiratory / Chest: Breath sounds NL, Breath sounds = bilat, No respiratory distress, No rales, No rhonchi, No wheezing, No stridor, No chest tenderness Cardiovascular: No gallop, No murmurs, No rubs Heart Rate / Rhythm: Positive: Irreg irregular rhythm No peripheral edema Abdomen: Atraumatic, Soft, Non-tender Neck: Atraumatic, Supple, No meningismus, Full range of motion, No adenopathy, No JVD Interpretation & Diagnostics Lab Results Interpretation Result Diagram: 03/28/17202403/28/172024 Test 03/28/17 20:25 03/28/17 20:26 03/29/17 01:55 White Blood Count 7.3th/mm3 (3.8-10.1) Red Blood Count 4.80mil/mm3 (4.40-5.80) Hemoglobin 14.3g/dL (13.8-17.2) Hematocrit 42.6% (41.0-50.0) Mean Corpuscular Volume 88.8fL (81-100) Mean Corpuscular Hemoglobin 29.8pg (27.0-35.0) Mean Corpuscular Hemoglobin Concent 33.6% (32.0-37.0) Red Cell Distribution Width 13.9% (12.3-15.4) Platelet Count 174bil/L (150-400) Neutrophils (%) (Auto) 59.1% (40-74) Lymphocytes (%) (Auto) 20.4% (14-46) Monocytes (%) (Auto) 9.4% (4-12) Eosinophils (%) (Auto) 10.5% (0-5) Basophils (%) (Auto) 0.5% (0-3) Prothrombin Time 34.4sec (8.1-12.5) Prothromb Time International Ratio 3.14ratio Sodium Level 137mEq/L (134-144) Potassium Level 4.4mEq/L (3.5-5.2) Chloride Level 101mEq/L (97-108) Carbon Dioxide Level 21mmol/L (18-29) Blood Urea Nitrogen 13mg/dL (8-27) Creatinine 0.65mg/dL (0.76-1.27) Estimat Glomerular Filtration Rate 123mL/min (>59) Glucose Level 131mg/dL (60-99) Calcium Level 9.4mg/dL (8.5-10.1) Magnesium Level 1.9mg/dL (1.6-2.6) Total Bilirubin 0.4mg/dL (0.0-1.2) Aspartate Amino Transf (AST/SGOT) 28U/L (0-50) Alanine Aminotransferase (ALT/SGPT) 20U/L (0-44) Alkaline Phosphatase 81U/L (25-160) Total Protein 7.5g/dL (6.4-8.4) Albumin 4.1g/dL (3.4-5.0) Hold Purple Top Tube Received (Received) Hold Blue Top Tube Received (Received) Hold [place] Top Tube Received (Received) Troponin T 0.010ug/L (0.0-0.011) ECG Interpretation ECG Interpretation: Atrial flutter with predominant 2:[address] depression, diffuse leads. Time: 20:18 Interpreted by: ED physician Abnormal Rate: 110 (116) ECG Interpretation: Sinus tachycardia with irregular rate of 100. Time: 01:43 Interpreted by: ED physician ECG Interpretation: Borderline prolonged MD interval. Time: 02:14 Interpreted by: ED physician Abnormal Rate: 50 (53) X-Ray Chest Interpretation Chest Xray Interpretation: IMPRESSION: No acute cardiopulmonary disease process. Dictated by: Jesenia Watt MD, PhD on 03/28/2017 at 20:51 View: Portable, 1 view Interpretation / Wet Read by: Interpret - Radiologist Re-Eval/Medical Decision Med Decision/Clinical Course 89-year-old male who presents with atrial flutter with 2-1 block with a ventricular rate of approximately 145. He was given metoprolol to slow the rate. He had some transient hypotension which responded to fluids. He eventually converted to a sinus bradycardia. His blood pressure was in the 95- 100 systolic range with a heart rate of 50-60 without orthostatic changes. Troponin negative 2. EKG shows no evidence of ischemia. He tolerated the blood pressure well. He is being discharged home Time of Eval: 22:58 Patient Status: Condition improved Re-Evaluation/Progress Note: Rate is improved with medication. BP dropped to 83/59 so we will give fluids. Time of Eval: 23:56 Patient Status: Condition improved Re-Evaluation/Progress Note: The pt is still in afib, so his will go home and get his medications and he will stay in the ED for monitoring for 2 hours. Time of Eval: 01:39 Patient Status: Condition improved Re-Evaluation/Progress Note: Still has flutter, will repeat troponin and repeat EKG. Time of Eval: 02:11 Patient Status: Condition improved Re-Evaluation/Progress Note: Pt feeling better, his heart spontaneously converted. Discussed plan for repeat EKG and discharge. Pt understands and agrees. Counseled Regarding: Diagnosis, Lab results, Need for follow-up, When/why to return to ED Discharge & Departure Primary Impression: Atrial flutter with rapid ventricular response Disposition: Home Discharge Condition All VS Reviewed: Yes Condition: Improved Patient Instructions: Atrial Flutter (ED) Additional Instructions: We gave you extra metoprolol 5 mg IV. No evidence of heart injury or heart damage. Talk to your doctor about further evaluation for this. Referrals: [facility] ([facility]) Crit Care Except Billable Proc Time Spent: 30-74 minutes Services Performed: Patient management by me, Time spent at bedside, Reviewing test results, Reviewing imaging, Discussing patient care, Documentation in record Critical Care Notes: Atrial flutter with rapid ventricular rate requiring IV medications and continuous cardiac monitoring. Scribe Attestation Portions of this note were transcribed by Peace Barraza. I, Dr. Méndez personally performed the history, physical exam and medical decision-making; I reviewed and confirmed the accuracy of the information in the transcribed note. Signed by: Vicki Salcido, 03/28/2017. copies to: [facility] Peyman Méndez MD Mar 28, 2017 21:17 PEACE BARRAZA Mar 28, 2017 21:24
[2017-03-28] MEDS ORDERED: MeTOProlol 1 mg/mL 5 mL Inj IVPUSH ONE (21:25)
[2017-03-28 21:47] VITALS: BP 100/74; PULSE 118; RESP 18; O2SAT 94
[2017-03-28 22:19] VITALS: BP 108/80; PULSE 108; RESP 21; O2SAT 95
[2017-03-28] MEDS ORDERED: 0.9% Sodium Chloride 500 ML IV ONE (23:00)
[2017-03-28 23:01] VITALS: BP 82/68; PULSE 118; RESP 18; O2SAT 95
[2017-03-28 23:13] VITALS: BP 102/78; PULSE 87; RESP 14; O2SAT 96
[2017-03-29 00:15] VITALS: BP 107/71; PULSE 98; RESP 18; O2SAT 98
[2017-03-29 02:21] VITALS: BP 106/50; PULSE 53
[2017-03-29 02:22] VITALS: BP 99/65; PULSE 65
[2017-03-29 03:04] VITALS: BP 95/56; PULSE 55; RESP 16; O2SAT 94
== END 2017-03-29 03:00 | disposition home or self-care (01) ==
LOC: SED 20:03
DX: I48.92 Unspecified atrial flutter (principal); R07.2 Precordial pain; I11.9 Hypertensive heart disease without heart failure; I48.0 Paroxysmal atrial fibrillation; I25.10 Atherosclerotic heart disease of native coronary artery without angina pectoris; E78.5 Hyperlipidemia, unspecified; J44.9 Chronic obstructive pulmonary disease, unspecified; Z79.01 Long term (current) use of anticoagulants; Z87.891 Personal history of nicotine dependence; Z88.0 Allergy status to penicillin; Z88.5 Allergy status to narcotic agent
CPT/HCPCS: 36415; 71010; 80053; 83735; 84484; 85025; 85610; 93005; 96374; 99285; J7040